=== PATIENT | female | born 1975 | race Caucasian/White ===

== ENCOUNTER 2016-07-14 15:59 | Emergency (ER) | payer BC ==
[2016-07-14 16:00] VITALS: BP 137/84; PULSE 105; RESP 20; TEMP 98; O2SAT 97
--- NOTE | 2016-07-14 17:02 | PD ---
Physical Exam Date Seen by Provider: July 14, 2016 Time Seen by Provider: 16:59 Narrative Pt c/o vaginal bleeding, irregular bleeding since 1 month ago (medical) . Bleeding was heavy. Pt reports abdominal pain. VSS, awaiting bed placement. Pt took urine test the other day and it was negative. Pt was about 7 weeks when she had the . Data Data Last Documented VS Vital Signs Date Time Temp Pulse Resp B/P Pulse Ox O2 Delivery O2 Flow Rate FiO2 07/14/16 16:00 98.0 105 20 137/84 97 Room Air MDM Supervised Visit with MARINO: Winnie Funez July 14, 2016 17:02
--- NOTE | 2016-07-14 17:56 | PD ---
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 40-year-old female presents for evaluation of vaginal bleeding, pelvic cramping. She reports that she had a medical one month ago for approximately seven- week .. Shortly thereafter passed products of conception, had vaginal bleeding for around 10 days which eventually went away. She started control pills on June 19. She has not been sexually active since May. She reports that since yesterday she has developed significant vaginal bleeding, passing clots, using approximately 1 pad an hour. She endorses associated pelvic cramping which has been constant as well. She denies any nausea or vomiting, fevers or chills, flank pain, dysuria, increased urinary frequency or hesitancy. Her C[employer] RETENTION SPECIALIST is Dr. Lange. No other complaints. PFSH Past Medical History ?: Not Social History Alcohol Use: No Tobacco Use: No Substance Use: No Allergies-Medications (Allergen,Severity, Reaction): Coded Allergies: No Known Allergies (Unverified , 07/14/16) Review of Systems Except as stated in HPI: all other systems reviewed are Neg Physical Exam Narrative GENERAL: Well-developed well-nourished female in no acute distress SKIN: Warm and dry. HEAD: Atraumatic. Normocephalic. EYES: Pupils equal and round. No scleral icterus. No injection or drainage. ENT: No nasal bleeding or discharge. Mucous membranes pink and moist. NECK: Trachea midline. No JVD. CARDIOVASCULAR: Regular rate and rhythm. No murmur appreciated. RESPIRATORY: No accessory muscle use. Clear to auscultation. Breath sounds equal bilaterally. GASTROINTESTINAL: Abdomen soft, mild suprapubic tenderness to palpation or guarding. No CVA tenderness Pelvic examination performed in the presence of a female nurse: There is some blood in the vaginal canal. The cervical os is 0.5 cm dilated. There is no cervical motion tenderness. There is generalized tenderness to palpation of the adnexa bilaterally as well as the uterus. No palpable masses. MUSCULOSKELETAL: No obvious deformities. No clubbing. No cyanosis. No edema. NEUROLOGICAL: Awake and alert. No obvious cranial nerve deficits. Motor grossly within normal limits. Normal speech. Data Data Last Documented VS Vital Signs Date Time Temp Pulse Resp B/P Pulse Ox O2 Delivery O2 Flow Rate FiO2 07/14/16 16:00 98.0 105 20 137/84 97 Room Air Orders Complete Blood Count With Diff (07/14/16 17:49) Basic Metabolic Panel (Bmp) (07/14/16 17:49) Type And Screen (07/14/16 17:49) Urinalysis - C+S If Indicated (07/14/16 17:49) Iv Access Insert/Monitor (07/14/16 17:49) Act Partial Throm Time (Ptt) (07/14/16 17:49) Prothrombin Time / Inr (Pt) (07/14/16:49) Us Pelvis Comp W Dop Transvag (07/14/16 17:49) Labs Laboratory Tests Test 07/14/16 18:00 White Blood Count 5.7 TH/MM3 Red Blood Count 4.22 MIL/MM3 Hemoglobin 11.3 GM/DL Hematocrit 35.1 % Mean Corpuscular Volume 83.2 FL Mean Corpuscular Hemoglobin 26.8 PG Mean Corpuscular Hemoglobin 32.3 % Concent Red Cell Distribution Width 13.1 % Platelet Count 324 TH/MM3 Mean Platelet Volume 7.0 FL Neutrophils (%) (Auto) 55.3 % Lymphocytes (%) (Auto) 33.0 % Monocytes (%) (Auto) 9.0 % Eosinophils (%) (Auto) 1.8 % Basophils (%) (Auto) 0.9 % Neutrophils # (Auto) 3.1 TH/MM3 Lymphocytes # (Auto) 1.9 TH/MM3 Monocytes # (Auto) 0.5 TH/MM3 Eosinophils # (Auto) 0.1 TH/MM3 Basophils # (Auto) 0.1 TH/MM3 CBC Comment DIFF FINAL Differential Comment Prothrombin Time 10.2 SEC Prothromb Time International 0.9 RATIO Ratio Activated Partial 31.3 SEC Thromboplast Time Urine Color YELLOW Urine Turbidity CLEAR Urine pH 5.5 Urine Specific [place] 1.029 Urine Protein TRACE mg/dL Urine Glucose (UA) NEG mg/dL Urine Ketones NEG mg/dL Urine Occult Blood SMALL Urine Nitrite NEG Urine Bilirubin NEG Urine Urobilinogen LESS THAN 2.0 MG/DL Urine Leukocyte Esterase NEG Urine RBC 14 /hpf Urine WBC 1 /hpf Urine Squamous Epithelial <1 /hpf Cells Urine Mucus FEW /lpf Microscopic Urinalysis Comment CULT NOT INDICATED Sodium Level 140 MEQ/L Potassium Level 4.1 MEQ/L Chloride Level 107 MEQ/L Carbon Dioxide Level 25.4 MEQ/L Anion Gap 8 MEQ/L Blood Urea Nitrogen 14 MG/DL Creatinine 0.78 MG/DL Estimat Glomerular Filtration 83 ML/MIN Rate Random Glucose 97 MG/DL Calcium Level 9.0 MG/DL Blood Type O POSITIVE Antibody Screen NEGATIVE Blood Bank Comment MDM Medical Decision Making Medical Screen Exam Complete: Yes Emergency Medical Condition: Yes Medical Record Reviewed: Yes Differential Diagnosis Retained products of conception, endometritis, dysmenorrhea Narrative Course 40-year-old female with medical one month ago presents with one-day history of pelvic cramping, vaginal bleeding. Plan is for basic lab work, type and screen, ultrasound of the pelvis. Laboratory imaging studies been reviewed. Ultrasound is unremarkable. Her hemoglobin is stable at 11.3. Most likely this is dysmenorrhea, first cycle after restarting her oral contraceptives. The patient was given a copy of her ultrasound, and recommend an outpatient follow-up with C[employer] RETENTION SPECIALIST next week and return for any worsening symptoms. She is agreeable to this plan. Diagnosis Primary Impression: Vaginal bleeding Additional Instructions: Follow-up with C[employer]ER RETENTION SPECIALIST next week. Tylenol or Motrin for discomfort. Return for any acutely new or worsening symptoms. Med/Other Pt SpecificInfo: No Change to Meds Disposition: 01 DISCHARGE HOME Condition: Stable Pb Daniels July 14, 2016 17:56
[2016-07-14 18:13] LABS: AUTOMATED NEUTROPHIL # 3.1 TH/MM3 (1.8-7.7); BASOPHIL # 0.1 TH/MM3 (0-0.2); BASOPHIL % 0.9 % (0.0-2.0); BLOOD, URINE SMALL (NEG); COMMENT (UR) CULT NOT INDICATED; CULTURE IF INDICATED CULT NOT INDICATED; EOSINOPHIL # 0.1 TH/MM3 (0-0.4); EOSINOPHIL % 1.8 % (0.0-4.0); GLUCOSE,URINE NEG (NEG); HEMATOCRIT 35.1 % (35.0-46.0); HEMO FLAGS DIFF FINAL; KETONE, URINE NEG (NEG); LYMPHOCYTE # 1.9 TH/MM3 (1.0-4.8); MEAN CELL VOLUME 83.2 FL (80.0-100.0); MEAN CORPUSCULAR HEMOGLOBIN 26.8 PG (27.0-34.0); MEAN CORPUSCULAR HGB CONC 32.3 % (32.0-36.0); MUCUS URINE FEW /lpf (OCC); NEUT % 55.3 % (16.0-70.0); NITRITE,URINE NEG (NEG); PH, URINE 5.5 (5.0-8.5); PLATELET COUNT 324 TH/MM3 (150-450); RED BLOOD COUNT 4.22 MIL/MM3 (4.00-5.30); RED CELL DISTRIBUTION WIDTH 13.1 % (11.6-17.2); SQUAMOUS EPITHELIAL CELL URINE <1 /hpf (0-5); URINE COLOR YELLOW (YELLW/STRAW); WHITE BLOOD COUNT 5.7 TH/MM3 (4.0-11.0)
[2016-07-14 18:21] LABS: APTT (PATIENT) 31.3 SEC (24.3-30.1); INTERNATIONAL NORMALIZED RATIO 0.9 RATIO; PROTHROMBIN TIME - PATIENT 10.2 SEC (9.8-11.6)
[2016-07-14 18:33] LABS: BICARBONATE 25.4 MEQ/L (21.0-32.0); POTASSIUM 4.1 MEQ/L (3.5-5.1)
--- NOTE | 2016-07-14 20:23 | RADRPT ---
EXAM DATE/TIME: 07/14/2016 19:31 [place] COMPARISON: No previous studies available for comparison. EXTERNAL COMPARISON : [facility], US TRANSVAGINAL OB 1ST TRIMESTER, June 06, 2016, May 31, 2016,US TRANSVAGINAL, January 14, 2008, December 10, 2007. INDICATIONS : Pelvic bleeding and cramping. MEDICAL HISTORY : Pelvic bleeding and cramping. History of pregnancies. SURGICAL HISTORY : section. one month ago. Tummy tuck. Lap band. ENCOUNTER: Initial ACUITY: 1 month PAIN SCORE: 6/10 LOCATION: Bilateral pelvis MEASUREMENTS: RIGHT OVARY: 2.3 x 2.8 x 1.9 cm LEFT OVARY: 2.0 x 1.8 x 1.3 cm UTERUS: 10.2 x 5.8 x 5.0 cm ENDOMETRIAL STRIPE: 10 mm FINDINGS: UTERUS: Small nabothian cysts in the cervix. Small mixed echogenicity probable fibroid of the lower uterine s egment. RIGHT OVARY: Ovary contains no mass or significant cystic lesion. LEFT OVARY: Ovary contains no mass or significant cystic lesion. MISCELLANEOUS: Minimal free fluid. CONCLUSION: Benign sonographic appearance of the pelvis Irvin Hernandez MD on July 14, 2016 at 20:19 Board Certified Radiologist. This report was verified electronically.
== END 2016-07-14 20:51 | disposition home or self-care (01) ==
LOC: NEPD 15:59
DX: N93.9 Abnormal uterine and vaginal bleeding, unspecified (principal)
CPT/HCPCS: 76830; 76856; 80048; 81001; 85025; 85610; 85730; 86850; 86900; 86901; 93975

== ENCOUNTER → 2017-03-24 | Day surgery (SDC) | payer BC ==
[~2017-03-24] VITALS: Ht 157.5 cm; Wt 97.0 kg
[~2017-03-24] MED LIST: *morphine SULFATE 10 MG/ML PERIprocedure ONLY ONE; ACET500T13 PO; ACETAMINOPHEN 1000 MG/100 ML 100 ML IV ONE; APREPITANT 40 MG CAP ONE; APREPITANT 40 MG CAP PO ONE; BUPIVACAINE HCL PF 0.25% 30 ML VIAL ONE; CHLORHEXIDINE GLUCONATE 2 % 1 PACK (2 CLOTHS) TOPICAL PRN; DEXAMETHASONE SOD PHOS 4 MG/ML VIAL IV ONE; DO NOT ADM ANY ANTICOAGULANT DRUGS PRN; FLUORESCEIN SOD 10% SOLN 500 MG/5 ML AMP ONE; GLYCOPYRROLATE 1 MG/5 ML SYRINGE IV PUSH ONE; IBUP1TAB5 PO; KETOROLAC TROMETHAMINE 30 MG/ML (IVP) VIAL IV PUSH ONE; LACTATED RINGER'S 1000 ML INJ 1,000 ML IV ONE; LACTATED RINGER'S 1000 ML IV PRN; LEXA10TA PO; LIDOCAINE HCL 1% PF 5 ML SYRINGE OTHER ONE; METOPROLOL TARTRATE 25 MG TAB PO PRN; MIDAZOLAM HCL 2 MG/2 ML VIAL ONE; MORPHINE SULFATE 4 MG/ML INJ ONE; NEOSTIGMINE 5 MG/5 ML SYRINGE IV PUSH ONE; PANT40TA3 PO; PHENYLEPH/NS 1000 MCG/10 ML SYR IV ONE; POVIDONE IODINE 5% (ANTISEPSIS KIT) 4 APPLICATIONS EACH NARE PRN; PROPOFOL 200 MG/20 ML AMP IV ONE; ROCURONIUM INJ 50 MG/5 ML SYRINGE IV PUSH ONE; SODIUM CHLORID 0.9% 500 ML IV PRN; VALA1TAB PO; ceFAZolin 2 GM PREMIX 50 ML IV SCH; ePHEDrine/NS 25 MG/5 ML SYRINGE IV ONE
--- NOTE | 2017-03-24 05:52 | PD.OP ---
Operative Report Date of Surgery: Mar 24, 2017 Preoperative Diagnosis: (1) Intramural leiomyoma of uterus (2) Iron deficiency anemia due to chronic blood loss (3) Secondary dysmenorrhea (4) Pelvic and perineal pain Postoperative Diagnosis: (1) Intramural leiomyoma of uterus (2) Iron deficiency anemia due to chronic blood loss (3) Secondary dysmenorrhea (4) Pelvic and perineal pain (5) Endometriosis of ovary Procedure: 1. LSCH 2. B salpingectomy 3. 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 enlarged uterus 2. fibroids 3. normal ovaries Specimens: uterus + fallopian tubes Complications: none Condition: stable Disposition: PACU Descriptions of the procedure: I discussed the risks, benefits and alternatives of the procedure with the patient. Informed consent was obtained after questions were answered. She was then taken to the operating room with her IV running. She was placed in the supine position and was given general anesthesia without difficulties or complications. She was then placed in the dorsal lithotomy position and was prepped and draped in the usual sterile fashion. Attention was first turned to the patient's genital area. A bivalved speculum was introduced inside the patient's vagina. The anterior aspect of the cervix was grasped with a single tooth tenaculum for manipulation. The cervix was carefully dilated. A uterine manipulator was carefully introduced inside her uterus. The rest of the instruments were removed from the patient's vagina. A sterile blue towel was used to cover the perineum. Iridescent dye was given to patient. The surgeon changed gloves and attention was then turned to the patient's abdomen. A vertical umbilical incision was made with the scalpel. A 5 mm trocar was introduced inside the patient's abdomen under direct visualization. A pneumo -peritoneum was created with CO2 gas. Two 5 mm trocars and one 10 mm trocar were introduced inside the patient's abdomen under direct visualization in the lower right, left and mid abdomen. A survey of the patient's abdomen revealed normal anatomy. A survey of the patient's pelvis revealed the findings noted above. The round ligaments and the utero-ovarian ligaments were carefully and serially grasped, electrocauterized and cut with the Harmonic scalpel. Excellent hemostasis was noted. Lysis of adhesions was needed to return anatomy to normal in order to continue with the procedure. The fallopian tubes were carefully removed with Harmonic scalpel. The right ovary had a couple of endometriotic lesions which were carefully fulgurated. Excellent hemostasis was noted. The tissues along the uterus on both sides were serially grasped, electrocauterized and transected with the Harmonic scalpel. The ureters were noted to be away from the surgical site. The uterine vessels were skeletonized, electrocauterized with the Kleppinger and transected with the Harmonic scalpel. Good hemostasis was noted. Next, the bladder flap was created and the bladder was dissected off the lower uterine segment. Excellent hemostasis was noted. The uterine manipulator was removed. Lillie loop was used to cut and electrocauterize the cervico-uterine junction. Good hemostasis was noted. The Kleppinger was used to electrocauterized the endocervix. The morcellator was introduced inside the abdomen under direct visualization and was used to cut and remove the uterus. The fallopian tubes and the ovarian cyst were carefully removed through the same port. Any remaining pieces of tissue were carefully removed and sent to Pathology. The surgical sites were noted to be hemostatic. Copious irrigation was done. Care was taken to ensure the removal of all small pieces of tissue which were left in the abdomen and pelvis after morcellation. The ureters were identified again and were found to be away from the surgical sites. There was no evidence of injury or blockage of the ureters or bladder. All of the instruments were removed from the patient's abdomen. The ports were also removed under direct visualization. Excellent hemostasis was noted. The CO2 gas was carefully expressed out of the patient's abdomen. The 10 mm fascial incision was reapproximated with a figure eight stitch of 0-Vicryl. The skin incisions were injected with 0.25 % Marcaine and were reapproximated with subcutaneous stitches of 4-0 Vicryl. Mastisol and steri strips were placed over the incisions. The patient tolerated the procedure well. She was successfully extubated and transferred to PACU in stable condition. Note: I discussed surgical procedures and surgical findings with patient's mother over a phone conversation. Her questions were answered. She verbalized understanding. Yvette Lange MD Mar 24, 2017 05:52
[2017-03-24 16:00] VITALS: BP 119/78; PULSE 79; RESP 16; TEMP 97.4; O2SAT 97
== END | disposition home or self-care (01) ==
LOC: HSDC 09:17
PROVIDERS: ATTEND Obstetrics & Gynecology
DX: D25.1 Intramural leiomyoma of uterus (principal); D50.0 Iron deficiency anemia secondary to blood loss (chronic); N94.6 Dysmenorrhea, unspecified; R10.2 Pelvic and perineal pain; N80.1 Endometriosis of ovary
CPT/HCPCS: 00840; 58542; 58662; 84702; 86850; 86900; 86901; 88307; C1765; J0131; J0690; J1100; J1885; J2250; J2270; J2370; J2710; J3010; J7120; J8501